=== PATIENT | male | born 1975 | race Caucasian/White ===

== ENCOUNTER 2020-03-25 12:01 | Emergency (ER) | payer OTHER ==
[~2020-03-25] VITALS: Ht 182.9 cm; Wt 85.0 kg
--- NOTE | 2020-03-25 12:41 | NUR ---
PT CAME IN BECAUSE HE HAD A SZ THIS MORNING THAT HIS WITNESSED. SHE SAID "IT LASTED ABOUT 5 MINUTES". PT STATES " I HAD NO CLUE WHAT HAPPENED". PT HAS HX OF SX AND IS SUPPOSED TO TAKE LAMICTAL BUT HASNT TAKEN IT IN OVER A YEAR. PT HAS SOME MINOR ABRASIONS ON BACK. SAYS SHE HELPED HIM TO THE GROUND BUT HE DID BUMP HIS HEAD. PT DENIES DOUBLE VISION. SAYS "I HAVE A SMALL MURDOCK BUT ITS NOT BAD". EKG COMPLETE. PT RESTING IN [facility] WITH SZ PRECAUTIONS IN PLACE
--- NOTE | 2020-03-25 13:39 | NUR ---
PT RESTING IN [facility]. NAD. VSS.
[2020-03-25 13:50] LABS: BASOPHILS % (AUTO) 0 % (0-1); EOSINOPHILS % (AUTO) 2 % (1-7); LYMPHOCYTES % (AUTO) 13 % (22-44); MEAN CORPUSCULAR HEMOGLOBIN 32.7 pg (27.5-34.5); MEAN CORPUSCULAR HGB CONC 33.7 g/dL (33.2-36.2); MEAN PLATELET VOLUME 9.5 fL (7.4-10.4); MONOCYTES % (AUTO) 5 % (2-9); NEUTROPHILS % (AUTO) 81 % (42-75); PLATELET COUNT 127 x10^3/uL (130-400); RED BLOOD COUNT 4.85 x10^6/uL (4.38-5.82); RED CELL DISTRIBUTION WIDTH 13.9 % (9.4-14.8)
[2020-03-25 13:54] LABS: MD NO
[2020-03-25 14:01] LABS: ALBUMIN 3.6 g/dL (3.4-5.0); ANION GAP 6 mmol/L (5-15); CALCIUM 8.5 mg/dL (8.5-10.1); CHLORIDE 106 mmol/L (98-107)
[2020-03-25 14:44] VITALS: BP 111/70
== END 2020-03-25 15:07 | disposition home or self-care (01) ==
LOC: ED 13:24
DX: S20.211A Contusion of right front wall of thorax, initial encounter (principal); S09.90XA Unspecified injury of head, initial encounter; G40.309 Generalized idiopathic epilepsy and epileptic syndromes, not intractable, without status epilepticus; M54.2 Cervicalgia; R94.31 Abnormal electrocardiogram [ECG] [EKG]; X58.XXXA Exposure to other specified factors, initial encounter; Y93.89 Activity, other specified; Y92.89 Other specified places as the place of occurrence of the external cause; Y99.8 Other external cause status
CPT/HCPCS: 36415; 70450; 71045; 72125; 80048; 82040; 85025; 93005; 99285